=== PATIENT | male | born 1960 | race Caucasian/White ===

== ENCOUNTER 2016-12-29 06:44 | Day surgery (SDC) | payer OTHER, MEDICARE ==
[~2016-12-29] VITALS: Ht 172.7 cm; Wt 77.1 kg
--- NOTE | ~2016-12-29 | S ---
[facility] [place] [address] SURGICAL PATH RPT PROCEDURE Name: VIRGINIA FERGUSON Room #: DEP [facility]..#: [id number] Admission: 12/29/16 Date of : 56 Discharge: 12/29/16 Report #: [id number] Path Case #: [id number] PATHOLOGY REPORT COLLECTION DATE: 12/29/2016 RECEIVED DATE: 12/30/2016 SUBMITTING PHYS: Dr. Frankie Rondon OTHER PHYS: Dr. Srinivasa Horne SPECIMEN(S) RECEIVED: A.Right eye * * * * * * * * * * * * FINAL DIAGNOSIS: Eye, right eye, enucleation: - Corneal ulceration along with congestion. 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 - Negative for malignancy. (IUV:db; 01/01/2017) PATHOLOGIST: Rosalie Schroeder M.D. REPORT ELECTRONICALLY SIGNED BY: Rosalie Schroeder M.D. DATE/TIME: 01/01/2017 15:40 * * * * * * * * * * * * GROSS PATHOLOGY: The specimen is received in formalin labeled "Virginia Ferguson, right eye". Received is an enucleation specimen measuring 2.5 x 2.5 x 2.5 cm in greatest dimensions with attached optic nerve stump measuring 0.5 cm in length by 0.6 cm in diameter. There are sutures present, however, orientation is not provided. The cornea is convex and cloudy to white-yi in appearance measuring 1.3 x 1.2 cm. Sectioning reveals the vitreous chamber to be filled with thick adam-colored mucoid material. The lens is light yi to orange red-yi and firm appearance. The choroid layer is light brown and smooth in appearance. A full-thickness longitudinal cross-section, through the aforementioned sutured area, to include the optic nerve stump, is submitted in cassette A1. (CAA; 12/31/2016) CLINICAL HISTORY: Blind painful right eye, corneal ulcer, endophthalmitis INITIAL CPT CODE(S): [address] [address] SURGICAL PATH RPT PROCEDURE Name: VIRGINIA FERGUSON Room #: DEP [facility] M.R.#: [id number] Admission: 12/29/16 Date of : 56 Discharge: 12/29/16 Report #: [id number] Path Case #: [id number]; [id number] Professional services performed by [facility] at [address] , [place] [address] Technical services performed by [facility] at [address] [place] [address], [address] [address]. [facility] [address] [address] PHONE: [phone] DIRECTOR: Jose Antonio Menon M.D. * * * END OF REPORT * * *
--- NOTE | ~2016-12-29 | O ---
[facility] [place] [address] [address] [place] [address] OPERATIVE REPORT Name: VIRGINIA FERGUSON Room #: 150-8 [facility]..#: [id number] Admission: 12/29/16 Attend Phys: Frankie Rondon MD Discharge: Date of : 56 Report #: [id number] THIS REPORT FOR: //name// CC: Rashaun Rondon DATE OF SERVICE: 12/29/2016 PREOPERATIVE DIAGNOSIS: Blind, painful right eye. POSTOPERATIVE DIAGNOSES: Blind, painful right eye with conjunctival scarring. PROCEDURE: Enucleation of right eye with implantation of 20-mm Medpor sphere with muscles attached to implant, conjunctivoplasty, and temporary tarsorrhaphy. SURGEON: Frankie Rondon MD SIZE MAKER: None. ANESTHESIA: General. COMPLICATIONS: None. INDICATIONS FOR SURGERY: This pleasant 56-year-old gentleman has an irreversibly blinded painful right eye that is now infected. He presents today for removal of the eye with reconstruction of the socket. Informed consent was obtained to include, but not limited to the potential risks for bleeding, infection, and the need for further treatment for surgery. DESCRIPTION OF PROCEDURE: The patient was taken to the operating room where general anesthesia was undertaken. The right socket was then anesthetized with Xylocaine with epinephrine mixed with Marcaine and Wydase. The patient was subsequently prepped and draped in the usual sterile fashion. A lid speculum was placed on the right eye while the left eye was protected with a moistened sponge. A 360-degree conjunctival peritomy was then performed. The oblique quadrants were then dissected as best possible. There is more scarring superiorly than inferiorly. Dissection was done in such a manner so as to save as much of the conjunctiva as possible. The lateral rectus muscle was then hooked with a muscle hook and cleaned of its surrounding connective tissue. A doubled arm 5-0 suture was then passed through its insertion with locking bites at each margin. The muscle was then transected from the globe. The superior medial and inferior rectus muscles were similarly [facility] [address] [place] [address] OPERATIVE REPORT Name: VIRGINIA FERGUSON Room #: 150-8 [facility] M.R.#: [id number] Admission: 12/29/16 Attend Phys: Frankie Rondon MD Discharge: Date of : 56 Report #: [id number] transected after they have been tagged with a 5-0 Vicryl suture. The oblique muscles were then isolated and amputated from the globe where they attached. They were allowed to retract back into the socket. The optic nerve was clamped with a hemostat for 3 minutes. This was released and it was then clamped again for 3 more minutes. The optic nerve was then clamped one final time for 2 minutes. The optic nerve was subsequently cut with an enucleation scissor. Minimal bleeding ensued. A 20-mm sizing sphere fit in the socket, so a 20-mm Medpor sphere was vacuum aspirated in an antibiotic irrigation solution subsequently, reposited behind posterior tenons with an easy glide introducer. Posterior tenons was then closed with interrupted 5-0 Vicryl sutures. The medial and lateral rectus muscles were attached to each other with interrupted 5-0 Vicryl sutures. The superior and inferior rectus muscles were attached to each other with 5-0 Vicryl sutures. Anterior tenons was then closed with interrupted buried 5-0 Vicryl sutures. The conjunctiva was undermined sufficiently for conjunctivoplasty repair to be accomplished. The conjunctival flap was then closed with 6-0 Vicryl sutures. A medium size conformer was placed followed by erythromycin ointment. A temporary tarsorrhaphy was then fashioned from a short section of IV tubing and attached to the junction of the medial two-thirds and the lateral one-third of the eyelid. 5-0 nylon suture was used for that over the IV tubing bolsters. The eye was then dressed with the Telfa pad followed by 2 eye pads, which were held in place with silk tape and Mastisol. The patient was subsequently transported to the recovery area having tolerated the procedures well with no anesthetic or operative complications being noted. Thank you very much. By: [id number] [id number] Frankie Rondon MD /nt
[~2016-12-29 06:44] MED LIST: ASPIR 8181 MG PO; CARVEDILOL12.5 MG PO; CENTRUM SILVER1 EAC4 PO; GATIFLOXACIN2.5 ML OP; JANUVIA 50 MG T50 M1 PO; OXYCODONE-ACET1 EACH PO
[2016-12-29 15:03] VITALS: BP 150/73
== END 2016-12-29 19:30 | disposition home or self-care (01) ==
LOC: OR 06:44 → TBA 06:44 → OR 10:20
DX: H54.41 Blindness, right eye, normal vision left eye (principal); H11.241 Scarring of conjunctiva, right eye; I12.9 Hypertensive chronic kidney disease with stage 1 through stage 4 chronic kidney disease, or unspecified chronic kidney disease; N18.3 Chronic kidney disease, stage 3 (moderate); I25.2 Old myocardial infarction; E11.22 Type 2 diabetes mellitus with diabetic chronic kidney disease; Z90.49 Acquired absence of other specified parts of digestive tract; Z98.890 Other specified postprocedural states; Z79.82 Long term (current) use of aspirin
CPT/HCPCS: 50010; 50101; 50386; 50398; 51636; 51854; 53500; 56527; 56528; 56531; 62110; 62900; 70005